=== PATIENT | male | born 1965 | race Caucasian/White ===

== ENCOUNTER 2021-02-02 09:19 | Outpatient (CLI) | payer OTHER, SELFPAY ==
--- NOTE | 2021-02-02 09:41 | ECG_ITS ---
Measurements Intervals [place] Rate: 79 P: 5 IA: 156 QRS: 3 QRSD: 96 T: 32 QT: 356 QTc: 408 Interpretive Statements SINUS RHYTHM INCOMPLETE RIGHT BUNDLE BRANCH BLOCK BORDERLINE ECG Electronically Signed On 02-02-2021 11:48:13 CDT by Logan Mao D.O.
== END 2021-02-02 09:20 | disposition home or self-care (01) ==
PROVIDERS: PCP Internal Medicine; Visit Provider Anesthesiology
DX: Z01.810 Encounter for preprocedural cardiovascular examination (principal); I45.10 Unspecified right bundle-branch block; F17.210 Nicotine dependence, cigarettes, uncomplicated
CPT/HCPCS: 93005

== ENCOUNTER → 2021-02-05 00:17 | Outpatient (CLI) | payer OTHER, SELFPAY ==
[2021-02-05 21:20] LABS: SARS-CoV-2 RNA PCR Negative
== END ==
PROVIDERS: PCP Internal Medicine; Visit Provider Surgery Plastic and Reconstructive Surgery
DX: Z01.812 Encounter for preprocedural laboratory examination (principal); Z20.822 Contact with and (suspected) exposure to COVID-19
CPT/HCPCS: C9803; U0003; U0005

== ENCOUNTER 2021-02-08 02:14 | Day surgery (SDC) | payer OTHER, SELFPAY ==
[2021-02-02 08:28] VITALS: BMI 26.8
[2021-02-08] MEDS: LACTATED RINGERS 1,000 ML 30 ML IV CONT ×2 (13:00→14:52)
--- NOTE | 2021-02-08 13:06 | WPDHPUPDATE1 ---
History and Physical Update Update Date/Time: 02/08/21 13:06 History and Physical has been reviewed, including an updated exam of the patient. There are NO changes in the patient's condition. Risks, benefits, and alternatives have been discussed and questions answered. Patient agrees to proceed with procedure.
--- NOTE | 2021-02-08 13:19 | P.PNAN_ITS ---
Anes - Initial Pre Proc Eval Procedure: Operation Date: 02/08/21 14:30 Proposed Procedures p Excision Of Mass On Left And Right Back Times Two - Derrek Sharpe MD Date/Time: 02/08/21 13:19 Surgeon: Derrek Sharpe MD Pre Op Diagnosis: x2 mass on right and Left back Patient Data Age: 55 Gender: M Height: 1.73 m Weight: 86.7 kg Allergies Allergy/AdvReac Type Severity Reaction Status Date / Time No Known Allergies Allergy Verified 02/08/21 13:05 Home Medications Medication Instructions Recorded Confirmed Type naproxen sodium [Aleve] 200 mg PO PRN PRN 02/02/21 02/08/21 History Patient hx anesthesia problems: none Family hx anesthesia problems: none [facility] Past Medical History Medical History BMI 29.0-29.9,adult Smoker Social History Social History Smoking status: Current every day smoker Tobacco type: cigarettes Additional smoking assessment comments: 1PPD FOR 40 YRS Alcohol intake: never Alcohol use details: 6 PACK PER YEAR Substance use: never Living arrangements: with family Anes - Eval Final PreProcedure Day of Procedure 02/08/21 13:19 Patient weight: overweight Heart: regular rate and rhythm Lungs: clear to auscultation and normal air movement Airway: Mallampati scale class II Neurological: alert and oriented Last oral intake: >/= 8 hours ASA classification: II Emergent: no Anesthetic plan: proceed Anesthesia type and monitoring: general ETT Informed Consent: The patient's anesthetic plan and its attendant risks and benefits were discussed with the patient/family/POA. Questions were solicited and answers provided to the satisfaction of the patient/family/POA.
--- NOTE | 2021-02-08 13:31 | W.PM.PROC2 ---
Procedure Note - Detailed Date of Procedure 02/08/21 Pre-op Diagnosis x2 mass on right and Left back Post-op Diagnosis same Procedure Performed 1. Excision left upper back mass 10cm 2. Excision right upper back mass 3.5cm Surgeon Derrek Sharpe MD Anesthesia general Description of Procedure Preoperatively the risks, benefits, alternatives again to were discussed with the patient. I want him to be very realistic about the risks involved as well as expectations. Made sure answered all of his questions to his satisfaction and consent obtained. He was taken to the operating room. Anesthesia provided by anesthesiology. He was placed in a prone position and prepped and draped in a standard sterile fashion. Surgical time-out was taken. 1% lidocaine and 0.25% Marcaine with epinephrine was used anesthetize locally. Fifteen blade used to make an incision over the masses. Dissection was continued down to the were identified completely removed. I irrigated with saline solution. I closed in many layers to obliterate all space using 2-0 Vicryl followed by 3-0 Monocryl in a running subcuticular 4-0 Monocryl. Final closure was tissue glue. He was awoke and taken to the PACU without difficulty. All instrument sponge counts were correct at the end of the case. Estimated Blood Loss 10 Drains No Packing No Pathology yes ( Left and right upper back mass) Complications No immediate complications Condition stable Disposition PACU
[2021-02-08] MEDS: ceFAZolin 2 GM/D5W 50 ML 2 GM/50 ML BAG IVPB (13:59)
[2021-02-08] MEDS: LIDO 1%/EPINEPHRINE 1:100,000 20 ML VIAL 15 ML INFILTRATE (14:43)
[2021-02-08] MEDS: BUPIVACAINE HCL 0.25% PF 30 ML VIAL 15 ML INFILTRATE (14:44)
[2021-02-08 14:52] VITALS: BP 87/54; PULSE 77; RESP 16; TEMP 36.4; O2SAT 97
[2021-02-08 15:10] VITALS: BP 109/73; PULSE 81; RESP 19; O2SAT 100
[2021-02-08 15:23] VITALS: BP 111/83; PULSE 77; RESP 22; O2SAT 95
[2021-02-08 15:37] VITALS: BP 122/85; PULSE 69; RESP 18
[2021-02-08 16:05] VITALS: BP 108/77; PULSE 74; RESP 18
== END 2021-02-08 16:19 | disposition home or self-care (01) ==
PROVIDERS: PCP Internal Medicine; Visit Provider Surgery Plastic and Reconstructive Surgery
PROC: (CPT 21931; principal; 2021-02-08 14:30)
DX: D17.1 Benign lipomatous neoplasm of skin and subcutaneous tissue of trunk (principal); F17.210 Nicotine dependence, cigarettes, uncomplicated
CPT/HCPCS: 21931 ×2; 88304; 93005; C9803; J0690; J2250; J3010; J7120; U0003; U0005